=== PATIENT | male | born 1960 | race Caucasian/White ===

== ENCOUNTER → 2019-10-07 13:07 | Outpatient (BNVA) | payer OTHER, SELFPAY | PROVIDERS: PCP Family Medicine; Visit Provider Nurse Practitioner Family | DX: I10 Essential (primary) hypertension (principal); I25.10 Atherosclerotic heart disease of native coronary artery without angina pectoris; R53.83 Other fatigue | CPT/HCPCS: 80053; 80061; 82306; 82607; 83721; 84484; 85025 ==

== ENCOUNTER → 2019-10-08 09:11 | Outpatient (BNVA) | payer OTHER, SELFPAY | PROVIDERS: PCP Family Medicine; Visit Provider Nurse Practitioner Family | DX: I25.10 Atherosclerotic heart disease of native coronary artery without angina pectoris (principal); R53.83 Other fatigue; E78.5 Hyperlipidemia, unspecified; I10 Essential (primary) hypertension; R11.2 Nausea with vomiting, unspecified; R61 Generalized hyperhidrosis; R73.09 Other abnormal glucose | CPT/HCPCS: 83036 ==

== ENCOUNTER 2022-05-08 10:29 | Outpatient (CLI) | payer OTHER, SELFPAY ==
--- NOTE | 2022-05-08 10:41 | XR_ITS ---
WS: [id number] LUMBAR SPINE TECHNIQUE: 5 views of the lumbar spine CLINICAL INFORMATION: LUMBAR PAIN COMPARISON: None. FINDINGS: Five [id number]-[id number] lumbar vertebral bodies. Mild lumbar curve convex RIGHT. Slightly retrolisthesis L3 on L4 and L4 on L5. Disc space narrowing worse at L1-L2 with hypertrophic spurring. Mild facet ar thropathy L5-S1. Aortic calcification. No acute appearing compression fractures. Visualized bowel gas pattern is normal. XR/XR lumbar spine min 4V [id number] IMPRESSION: 1. Mild lumbar curve convex RIGHT. No acute compression fractures. 2. Slight retrolisthesis L3 on L4 and L4 on L5. 3. Disc space narrowing worse at L1-L2 with anterior hypertrophic changes. 4. Mild facet arthropathy L5-S1 with bony foraminal narrowing. 5. Vascular calcification.
--- NOTE | 2022-05-08 10:41 | XR_ITS ---
WS: [id number] HIPS BILATERAL TECHNIQUE: 4 views, AP and lateral CLINICAL INFORMATION: R HIP PAIN COMPARISON: None. FINDINGS: Mild degenerative arthritis both hips with joint space narrowing LEFT greater than RIGHT. Slight hype rtrophic spurring about the acetabulum. Femoral necks and proximal femoral shafts appear normal. Norm al pubic rami. Vascular calcification. Incidental pelvic phleboliths. No acute fractures. XR/XR hip BI 3-4V wo/w pel [id number] IMPRESSION: Mild osteoarthritis both hips with joint space narrowing LEFT greater than RIGH T. Tonnis classification LEFT: grade 1: sclerosis of femoral head and acetabulum o r slight joint space narrowing or slight lippig at joint margins Tonnis classification RIGHT: grade 1: sclerosis of femoral head and acetabulum or slight joint space narrowing or slight lippig at joint margins
== END 2022-05-08 10:30 | disposition home or self-care (01) ==
LOC: RAD 10:32
PROVIDERS: PCP Nurse Practitioner Family; Visit Provider Nurse Practitioner Family
DX: M47.897 Other spondylosis, lumbosacral region (principal); M16.0 Bilateral primary osteoarthritis of hip
CPT/HCPCS: 72110; 73522

== ENCOUNTER 2023-05-25 09:03 | Outpatient (CLI) | payer OTHER, SELFPAY ==
--- NOTE | 2023-05-25 09:38 | ECG_ITS ---
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 Measurements Intervals [place] Rate: 68 P: 0 OH: 0 QRS: 62 QRSD: 91 T: 13 QT: 394 QTc: 421 Interpretive Statements ATRIAL FIBRILLATION ABNORMAL RHYTHM ECG Compared to ECG 08/03/2018 04:46:20 Sinus rhythm no longer present T-wave abnormality no longer present Possible ischemia no longer present Electronically Signed On 05-25-2023 17:22:23 CDT by Jesse Ludwig M.D. [id number]
[2023-05-25 09:49] LABS: Basophils # 0.1 10^3/uL (0.0-0.1); Basophils % 0.6 %; Eosinophils # 0.1 10^3/uL (0.0-0.8); Eosinophils % 1.4 %; Hematocrit 43.3 % (37-53); Lymphocytes % 24.2 %; Mean Corpuscular HGB Conc 34.2 g/dL (30-55); Mean Corpuscular Hemoglobin 31.8 pg (27-33); Mean Corpuscular Volume 92.9 fl (82-101); Mean Platelet Volume 10.4 fL (7.4-10.4); Monocytes # 0.6 10^3/uL (0.2-0.9); Neutrophils # 5.27 10^3/uL (1.8-7.7); Neutrophils % 65.4 %; Nucleated Red Blood Cells % 0 %; Platelet Count 179 10^3/cmm (157-399); Red Blood Count 4.66 10^6/uL (3.85-5.65); Red Cell Distribution Width 12.6 % (12.1-15.1); White Blood Count 8.05 10^3/uL (3.29-11.43)
[2023-05-25 10:16] LABS: Anion Gap 14.7 (5-19); Blood Urea Nitrogen 15 mg/dL (8-23); Calcium 9.4 mg/dL (8.5-10.5); Carbon Dioxide 26 mmol/L (22-29); Chloride 104 mmol/L (98-107); Glomerular Filtration Rate 67.8 mL/min (90-130); Glucose 115 mg/dL (65-115); Osmolality Calculated 292 mOsm/kg (285-295); Potassium 4.7 mmol/L (3.5-5.1); Sodium 140 mmol/L (136-145)
== END 2023-05-25 09:04 | disposition home or self-care (01) ==
PROVIDERS: PCP Nurse Practitioner Family; Visit Provider Specialist
DX: J38.3 Other diseases of vocal cords (principal); I48.91 Unspecified atrial fibrillation; Z79.899 Other long term (current) drug therapy
CPT/HCPCS: 36415; 80048; 85025; 93005

== ENCOUNTER 2023-06-05 11:11 | Day surgery (SDC) | payer OTHER, SELFPAY ==
[2023-06-05] VITALS (10 sets, daily range): BP systolic 137–171; BP diastolic 85–113; PULSE 75–94; RESP 15–21; TEMP 36.1–36.6; O2SAT 91–98
--- NOTE | 2023-06-05 11:41 | W.PM.OPSUD ---
Surgery/Procedure H&P Update DATE OF PROCEDURE: June 05, 2023 DATE H&P PERFORMED: 05/25/23 PRIMARY INDICATION FOR PROCEDURE: True vocal cord lesion PLANNED PROCEDURE: Operation Date: 06/05/23 12:50 Proposed Procedures p Direct,micro direct laryngscopy with biopsy/biopsies 39700,J38.3(Not Applicable) - César Sinclair MD
--- NOTE | 2023-06-05 11:44 | ANES.PREANE2 ---
Pre-Anesthetic Assessment Height/Weight: Height 1.73 m Operation Date: 06/05/23 12:50 Proposed Procedures p Direct,micro direct laryngscopy with biopsy/biopsies 55339,J38.3(Not Applicable) - César Sinclair MD Familial anesthetic complications: None Was Beta Bonnie taken within 24 hours: N/A Was Clonidine taken within 24 hours: N/A Last intake: > 8hrs Social Alcohol (a couple of bourbon and cokes a ngiht) and Tobacco Exam alert, oriented x 3, clear to auscultation bilaterally and regular rate & rhythm Airway Mallampati: Class II Dentition: false CV/HEM Atrial Fibrillation, Coronary Artery Disease and Hypertension Anesthetic Plan ASA status: 3 Anesthesia: General Risk of > 500 ml blood loss (7ml/kg in children): No Medications/Allergies Home Medications Medication Instructions Recorded Confirmed Last Taken Type cyanocobalamin (vitamin B-12) 100 mcg IM Q30D 03/12/20 06/04/23 Unknown History 1,000 mcg/mL injection kit omeprazole 20 mg capsule,delayed 20 mg PO DAILY 03/12/20 06/04/23 06/04/23 History release fenofibrate 160 mg tablet 160 mg PO DAILY #90 tabs 09/22/21 06/04/23 06/04/23 Rx nitroglycerin 0.4 mg sublingual 0.4 mg sublingual Q5M PRN chest 09/22/21 06/04/23 Unknown Rx tablet (Nitrostat) pain #25 tabs aspirin 81 mg tablet,delayed 81 mg PO DAILY #90 tabs 03/27/22 06/04/23 05/28/23 Rx release (Adult Low Dose Aspirin) metoprolol succinate 100 mg 100 mg PO QDAY #90 tabs 06/15/22 06/04/23 06/05/23 Rx tablet,extended release 24 hr amlodipine 5 mg tablet 5 mg PO DAILY #90 tabs 09/25/22 06/04/23 06/04/23 Rx magnesium 250 mg tablet 250 mg PO DAILY 09/25/22 06/04/23 06/04/23 History clobetasol 0.05 % topical ointment 1 applic topical BID 2 weeks #60 10/19/22 06/04/23 Unknown Rx grams losartan 50 mg tablet 150 mg PO DIRECTED #270 tabs 03/06/04/23 06/04/23 Rx rosuvastatin 20 mg tablet 10 mg PO DAILY #135 tabs 01/26/23 06/04/23 06/04/23 Rx clopidogrel 75 mg tablet 75 mg PO DAILY #90 tabs 04/02/23 06/04/23 05/28/23 Rx Allergies Allergy/AdvReac Type Severity Reaction Status Date / Time No Known Allergies Allergy Verified 06/04/23 11:05 [facility] Anesthesia Medical History ASHD (arteriosclerotic heart disease) Hyperlipemia Hypertension Surgical History History of circumcision Family History Other Heart disease Social History Smoking and tobacco status: current every day smoker Alcohol intake: current Alcohol intake frequency: 3 or more drinks per day Substance/Drug Use: never Lives independently: Yes Household members: spouse Marital status: Data Anesthesia Cardiac Studies: No Data to Display
[2023-06-05] MEDS: sodium chloride 0.9% 1,000 ML 30 ML IV (11:55)
[2023-06-05] MEDS: fluorescein 1 mg Strip XX (13:05)
[2023-06-05] MEDS: EPINEPHrine 1 mg/mL INJ XX (13:05)
--- NOTE | 2023-06-05 13:23 | PM.OP ---
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 Procedure done: Microdirect laryngoscopy with biopsy of left anterior true vocal cord lesion Implants: None Specimens removed/disposition: Left anterior true vocal cord lesion Pathology: Left anterior true vocal cord lesion Surgeon: César Sinclair Surgeon: César Sinclair MD Crusher Foreman: Korin Leahy Anesthesia: General Estimated blood loss (mL): 2 IV fluids (mL): 500 Complications: None Findings: - Bulky, 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 The patient desires surgical therapy. Procedure: The patient was then preoperative holding area was taken to the operating room where he was placed on the operating table in supine position. Anesthesia was obtained with general endotracheal anesthesia and the table was turned 90 degrees to the patient's left. The patient then prepped and draped in the usual sterile fashion and a moist Ray-Porsha was placed on the patient's maxillary gingiva. The surgical laryngoscope was then advanced down the right oral cavity gutter under direct vision until the larynx came into view. An inspection was then carried out of the patient's larynx with the findings noted above. The patient was then placed on suspension and the surgical Mendez kaveh surgical telescope was advanced into the patient's airway and the lesion previously described was documented photographically. The lesion of the left anterior true vocal cord was noted then removed using cup forceps and microlaryngeal instruments. At this point hemostasis was achieved with direct application of 1:1000 epinephrine on a neuropledget. Once this was accomplished the patient was taken off suspension and the larynx was reinspected. At this point the instrumentation was removed from the patient and the procedure was terminated. Control of the patient was returned to anesthesia where he underwent an uneventful reversal anesthesia extubation was taken to recovery room in stable condition. There were no operative or anesthetic complications
--- NOTE | 2023-06-05 14:00 | ANE.PACU2 ---
Inpatient post-anesthesia follow up: Airway intact: Yes Vital signs: Temperature 97 F Pulse Rate 81 Respiratory Rate 18 Blood Pressure 142/88 Pulse Oximetry 94 Oxygen Delivery Me thod Room Air Oxygen Flow Rate 2 Fraction of Inspir ed Oxygen Hydration adequate: Yes Nausea and vomiting: No Pain level: 1 Mental status: Baseline
== END 2023-06-05 14:35 | disposition home or self-care (01) ==
PROVIDERS: Family Provider Internal Medicine; PCP Nurse Practitioner Family; Visit Provider Specialist
PROC: 0CJS8ZZ Inspection of Larynx, Via Natural or Artificial Opening Endoscopic (ICD-10-PCS; principal; 2023-06-05 12:50)
DX: J38.3 Other diseases of vocal cords (principal); I48.91 Unspecified atrial fibrillation; I25.10 Atherosclerotic heart disease of native coronary artery without angina pectoris; I10 Essential (primary) hypertension; E78.5 Hyperlipidemia, unspecified; F17.210 Nicotine dependence, cigarettes, uncomplicated
CPT/HCPCS: 31536; 88305; 88342; J0171; J0330; J0360; J1100; J2405; J2704; J3490; J7030

== ENCOUNTER 2023-08-08 10:37 | Outpatient (CLI) | payer OTHER, SELFPAY ==
--- NOTE | 2023-08-08 11:15 | USCV_ITS ---
David Nance Age: 63 Gender: M : 1960 Exam Date: 08/08/2023 11:00 Ordering Phys: Babak George M.D ([email or web address]) Technologist: CT Exam Location: [facility] [place] Indication: sob,afib BP: 130 / 80 HR: 77 Rhythm: Atrial fibrillation Technical Quality: Adequate MEASUREMENTS (Male / Female) Normal Values 2D ECHO LV Chamber Size 4.2 cm RV Chamber Size 4.2 cm LVOT Diameter 2.0 cm LV Ejection Fraction MOD 2C 49.2 % LV Ejection Fraction 2C AL 47.2 % LA Diameter 4.5 cm LA Width 4.1 cm LA Height 6.0 cm RA Width 4.9 cm RA Height 5.6 cm Aorta at Sinotubular Diameter 2.5 cm IVC Diameter 2.0 cm M-MODE Aortic Annulus Diameter 3.4 cm LA Ao Ratio MM 1.4 MV E Point Septal Separation 0.5 cm DOPPLER AV Peak Velocity 141.0 cm/s LVOT Peak Velocity 93.0 cm/s AV Area Cont Eq vti 2.5 cm squared AV Area Cont Eq pk 2.2 cm squared MV E' Velocity 13.0 cm/s TR Peak Velocity 232.2 cm/s TR Peak Gradient 21.6 mmHg TV Peak E Velocity 98.0 cm/s Right Atrial Pressure 3.0 mmHg Pulmonary Artery Systolic Pressu 24.6 mmHg PV Peak Velocity 116.0 cm/s FINDINGS Left Ventricle Normal left ventricular size, systolic function and wall thickness, with no regional wall motion abnormalities. Left ventricular ejection fraction is estimated at 58 %. Right Ventricle Normal right ventricular size and systolic function. Right Atrium Normal right atrial size. Left Atrium Mildly increased left atrial size. Mitral Valve Structurally normal mitral valve. Thickened mitral valve. Mild- moderate mitral valve regurgitation. Aortic Valve Structurally normal trileaflet aortic valve. Trace aortic valve regurgitation. Tricuspid Valve Structurally normal tricuspid valve. Trace tricuspid valve regurgitation. Pulmonic Valve Pulmonic valve not well visualized. Trace pulmonary valve regurgitation. Pericardium No pericardial effusion. Aorta Normal size aortic root and proximal ascending aorta. IVC Normal IVC dimension with >50% respiratory change of the inferior vena cava. CONCLUSIONS 1. Normal LV systolic function. Estimated LVEF 55 to 60% 2. Mildly dilated left atrium. Mild to moderate mitral regurgitation. 3. Normal RV size and systolic function. 4. Normal right heart and pulmonary pressures. Giovani Sargent MD (Electronically Signed) Final Date: 08 August 2023 15:23 S
== END 2023-08-08 10:38 | disposition home or self-care (01) ==
LOC: RAD 10:38
PROVIDERS: Family Provider Internal Medicine; PCP Nurse Practitioner Family; Visit Provider Internal Medicine
DX: R07.9 Chest pain, unspecified (principal); R06.02 Shortness of breath; I48.91 Unspecified atrial fibrillation; I51.7 Cardiomegaly; I34.0 Nonrheumatic mitral (valve) insufficiency
CPT/HCPCS: 93306

== ENCOUNTER 2024-02-19 19:30 | Inpatient (IN) | payer OTHER, SELFPAY ==
[2024-02-19 19:41] VITALS: BP 120/79; PULSE 72; RESP 14; TEMP 36.7; O2SAT 96
[2024-02-19 19:57] LABS: Basophils % 0.2 %; Eosinophils % 0.1 %; Hematocrit 42.8 % (37-53); Lymphocytes # 1.1 10^3/uL (0.8-4.8); Lymphocytes % 5.8 %; Mean Corpuscular HGB Conc 33.6 g/dL (30-55); Mean Corpuscular Hemoglobin 31.4 pg (27-33); Mean Corpuscular Volume 93.2 fl (82-101); Mean Platelet Volume 10.4 fL (7.4-10.4); Monocytes # 1.3 10^3/uL (0.2-0.9); Monocytes % 7.2 %; Neutrophils # 15.68 10^3/uL (1.8-7.7); Neutrophils % 86.3 %; Nucleated Red Blood Cells % 0 %; Platelet Count 227 10^3/cmm (157-399); Red Blood Count 4.59 10^6/uL (3.85-5.65); Red Cell Distribution Width 12.3 % (12.1-15.1); White Blood Count 18.16 10^3/uL (3.29-11.43)
--- NOTE | 2024-02-19 19:58 | ECG_ITS ---
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 Measurements Intervals [place] Rate: 68 P: 35 MN: 155 QRS: 37 QRSD: 90 T: 30 QT: 388 QTc: 415 Interpretive Statements SINUS RHYTHM Compared to ECG 05/25/2023 09:46:38 Atrial fibrillation no longer present Electronically Signed On 02-20-2024 18:19:44 CDT by Babak George M.D. [id number]
--- NOTE | 2024-02-19 20:08 | CTR_ITS ---
PROCEDURE INFORMATION: Exam: CT Abdomen And Pelvis With Contrast Exam date and time: 02/19/2024 9:03 PM Age: 63 years old Clinical indication: Abdominal pain; Additional info: Rlq abdominal pain TECHNIQUE: Imaging protocol: Computed tomography of the abdomen and pelvis with contrast. Radiation optimization: All CT scans at this facility use at least one of these dose optimization techniques: automated exposure control; mA and/or kV adjustment per patient size (includes targeted exams where dose is matched to clinical indication); or iterative reconstruction. Contrast material: OMNI 350; Contrast volume: 100 ml; Contrast route: INTRAVENOUS (IV); COMPARISON: CR XR hip BI 3-4V wo/w pel [id number] 05/08/2022 10:47 AM RADIATION DOSE METRICS: Total DLP (mGy-cm): 455.2 FINDINGS: Lungs: Mild left basilar atelectasis and/or scarring. Heart: Mild cardiomegaly. No pericardial effusion or pericardial thickening. Liver: The liver is normal. No hepatic masses are identified. Gallbladder and bile ducts: The gallbladder is normal. There is no ductal dilatation. Pancreas: The pancreas is normal. Spleen: Calcified splenic granulomata are noted. The spleen is otherwise normal. Adrenal glands: The adrenal glands are normal. Kidneys and ureters: There is normal enhancement of the kidneys. No renal calcifications are identified. There is no hydronephrosis. There are bilateral subcentimeter renal low-density lesions which are too small for accurate characterization, likely representing simple cysts. Stomach and bowel: There is no large or small bowel obstruction. There is no evidence of bowel wall thickening. Appendix: Multiple appendicolith. Distended gallbladder which is partially fluid-filled measuring up to 14 mm. Marked adjacent inflammatory change. Jpkmg-dl-nlwmgzaw fluid tracking in the right paracolic gutter. Intraperitoneal space: No other areas of inflammatory change. No pneumoperitoneum. No other free fluid or fluid collections Vasculature: Atherosclerotic calcifications of the aorta are present. No aneurysm is identified. Lymph nodes: There are no enlarged retroperitoneal or mesenteric lymph nodes. Urinary bladder: The bladder is decompressed and collapsed. No abnormality identified. Reproductive: The prostate is grossly unremarkable. Bones/joints: No acute osseous abnormalities are seen. Soft tissues: There is a small left inguinal hernia containing only fat. The soft tissues are otherwise within normal limits. CT/CT abdomen pelvis w con* [id number] IMPRESSION: 1. Acute appendicitis. Moderate fluid in the distal right paracolic gutter may represent reactive fluid or perforation. 2. Other nonemergent findings above. COMMENTS: Consistent with the [employer]'s Incidental Findings Committee white paper (J Am Radha Radiol 2018): Any incidental renal lesion less than 1 cm or classified as too small to characterize, or any incidental cystic renal lesion characterized as simple-appearing, is likely benign. No follow-up imaging is recommended for these lesions per consensus recommendations based on imaging criteria.
--- NOTE | 2024-02-19 20:15 | ED_ITS ---
HPI - Abdominal Pain 2 General: Chief Complaint: Abdominal Pain Stated Complaint: Rt Lower Quad Pain Time Seen by Provider: 02/19/24 19:52 History of Present Illness: 63-year-old man with a history of hypert ension hyperlipidemia and coronary artery disease who presents to the emergency room with right lower quadrant abdominal pain all day today. He had nausea and vomiting. Pain is worse with movement and walking standing and palpation. No known fever. No chest pain. No altered mental status. No dysuria. No hematuria. No history of kidney stones. He has had no abdominal surgeries in the past. Review of Systems 2 Narrative: Constitutional symptoms: Negative except as documented in HPI. Skin symptoms: Negative except as documented in HPI. Eye symptoms: Negative except as documented in HPI. ENMT symptoms: Negative except as documented in HPI. Respiratory symptoms: Negative except as documented in HPI. Cardiovascular symptoms: Negative except as documented in HPI. Gastrointestinal symptoms: Negative except as documented in HPI. Genitourinary symptoms: Negative except as documented in HPI. Musculoskeletal symptoms: Negative except as documented in HPI. Neurologic symptoms: Negative except as documented in HPI. Psychiatric symptoms: Negative except as documented in HPI. Endocrine symptoms: Negative except as documented in HPI. PFSH ED 2 PFSH: Medical History ASHD (arteriosclerotic heart disease) Hyperlipemia Hypertension Surgical History History of circumcision Family History Other Heart disease Social History Smoking and tobacco/nicotine status: current every day tobacco/nicotine user Alcohol intake: current Alcohol intake frequency: 3 or more drinks per day Substance/Drug Use: never Lives independently: Yes Household members: spouse Marital status: Physical Exam 2 Narrative: EXAM NARRATIVE: General: Alert, no acute distress. Skin: Warm, dry. Head: Normocephalic, atraumatic. Neck: Supple, trachea midline. Eye: Extraocular movements are intact. Ears, nose, mouth and throat: Tacky oral mucosa Cardiovascular: Regular, Normal peripheral perfusion. Respiratory: Lungs are clear to auscultation, respirations are non-labored, breath sounds are equal, Symmetrical chest wall expansion. Gastrointestinal: Soft, moderate to severe right lower quadrant pain to palpation. Also referred pain when I palpate the left to the right. Pain with tapping is foot., Non distended, Normal bowel sounds. Musculoskeletal: Normal ROM, no deformity. Neurological: Alert and oriented, No focal neurological deficit observed. Psychiatric: Cooperative, appropriate mood & affect. Course 2 Vital Signs: Vital signs: Vital Signs Temperature 98.1 F 02/19/24 19:41 Pulse Rate 68 02/19/24 20:27 Respiratory Rate 18 02/19/24 20:45 Blood Pressure 138/75 02/19/24 20:27 Pulse Oximetry 98 02/19/24 20:45 Oxygen Delivery Me thod Room Air 02/19/24 20:27 MDM - Abdominal Pain Medical Decision Making Medical decision making: Differential diagnosis for this patient with right lower quadrant abdominal pain including but not limited to and based on the above HPI, review of systems and physical exam: Ureterolithiasis. Urinary tract infection. Appendicitis. colitis. small bowel obstruction. Crohn's flare. Pancreatitis. Cholelithiasis or cholecystitis. Hepatitis. Diverticulitis. Constipation. ovarian cyst. ovarian torsion Workup: Orders were placed to evaluate differential diagnosis based on the above differential, HPI and exam: EKG: Time 1957 rate 68. Normal sinus rhythm, No ST-T changes, no ectopy, normal UT & QRS intervals, This was reviewed and interpreted by myself the ER physician at 2001 Lab Review: Laboratory results were reviewed and interpreted by myself the emergency room physician. Lab work remarkable for leukocytosis with a white count 22,000 and a CRP of over 50,000. Urinalysis was unremarkable. CT of the abdomen pelvis with contrast: This is positive for acute appendicitis. There is quite a bit of inflammation and could possibly be early perforation but there is no free air. This was reviewed and interpreted by myself the emergency room physician. I also reviewed the radiology report. Consultation: I spoke with the radiologist on-call with [facility]. Discussed the findings of acute appendicitis. Consultation: I spoke with Dr. Martell who is on-call for general surgery. He accepts the patient to his service on the floor. Recommends NPO. 150 mL of normal saline an hour. Scheduled Zosyn. Pain and nausea meds as needed. I reviewed the patient's medical record Reexamination: On reexamination the patient seems to be feeling a little better after having pain medications. Still some right lower quadrant pain. No increased work of breathing. No altered mental status. Assessment and plan: Acute appendicitis Dehydration Chronic anticoagulation with Eliquis and Plavix. ? IV Zosyn, IV fluids, IV morphine, IV Zofran in the emergency room -Last Plavix and Eliquis were early this morning. So Eliquis should be out of his system by the time of surgery tomorrow. -I discussed the patient with the general surgeon on-call who is admitting the patient. - Discussed findings and plan with patient. Answered any questions. - All laboratory values were reviewed and interpreted personally by myself, the ER physician - All imaging was reviewed and interpreted personally by myself, the ER physician. - Evaluation and treatment of this problem were appropriate in the emergency setting Lab Data 02/19/24 19:50 02/19/24 19:50 Labs/Radiology: Radiology Impressions Abdomen/Pelvis CT 02/19/24 20:08 IMPRESSION: 1. Acute appendicitis. Moderate fluid in the distal right paracolic gutter may represent reactive fluid or perforation. 2. Other nonemergent findings above. COMMENTS: Consistent with the [employer]'s Incidental Findings Committee white paper (J Am Radha Radiol 2018): Any incidental renal lesion less than 1 cm or classified as too small to characterize, or any incidental cystic renal lesion characterized as simple-appearing, is likely benign. No follow-up imaging is recommended for these lesions per consensus recommendations based on imaging criteria. ADDENDUM: 02/19/249 ADDENDUM: THIS REPORT CONTAINS FINDINGS THAT MAY BE CRITICAL TO PATIENT CARE. The findings were verbally communicated via telephone conference with BIMAL UHERTAS at 9:24 PM CDT on 02/19/2024. The findings were acknowledged and understood. Laboratory Results WBC 18.16 10^3/uL (3.29-11.43) H 02/19/24 19:50 RBC 4.59 10^6/uL (3.85-5.65) 02/19/24 19:50 Hgb 14.40 g/dL (11.27-16.99) 02/19/24 19:50 Hct 42.8 % (37-53) 02/19/24 19:50 MCV 93.2 fl (82-101) 02/19/24 19:50 MCH 31.4 pg (27-33) 02/19/24 19:50 MCHC 33.6 g/dL (30-55) 02/19/24 19:50 RDW 12.3 % (12.1-15.1) 02/19/24 19:50 Plt Count 227 10^3/cmm (157-399) 02/19/24 19:50 MPV 10.4 fL (7.4-10.4) 02/19/24 19:50 Neut % (Auto) 86.3 % 02/19/24 19:50 Lymph % (Auto) 5.8 % 02/19/24 19:50 [place] % (Auto) 7.2 % 02/19/24 19:50 Eos % (Auto) 0.1 % 02/19/24 19:50 Baso % (Auto) 0.2 % 02/19/24 19:50 Neut # (Auto) 15.68 10^3/uL (1.8-7.7) H 02/19/24 19:50 Lymph # (Auto) 1.1 10^3/uL (0.8-4.8) 02/19/24 19:50 [place] # (Auto) 1.3 10^3/uL (0.2-0.9) H 02/19/24 19:50 Eos # (Auto) 0.0 10^3/uL (0.0-0.8) 02/19/24 19:50 Baso # (Auto) 0.0 10^3/uL (0.0-0.1) 02/19/24 19:50 Nucleated RBC % (auto) 0 % 02/19/24 19:50 Nucleated RBCs # 0.0 /100WBC 02/19/24 19:50 Sodium 140 mmol/L (136-145) 02/19/24 19:50 Potassium 4.8 mmol/L (3.5-5.1) 02/19/24 19:50 Chloride 104 mmol/L (98-107) 02/19/24 19:50 Carbon Dioxide 26 mmol/L (22-29) 02/19/24 19:50 Anion Gap 14.8 (5-19) 02/19/24 19:50 BUN 13 mg/dL (8-23) 02/19/24 19:50 Creatinine 1.2 mg/dL (0.7-1.2) 02/19/24 19:50 GFR Calculation 61.1 mL/min (90-130) L 02/19/24 19:50 Glucose 137 mg/dL (65-115) H 02/19/24 19:50 Calculated Osmolality 292 mOsm/kg (285-295) 02/19/24 19:50 Calcium 9.1 mg/dL (8.5-10.5) 02/19/24 19:50 Total Bilirubin 0.6 mg/dL (0.15-1.2) 02/19/24 19:50 AST 23 U/L (0-40) 02/19/24 19:50 ALT 38 U/L (0-41) 02/19/24 19:50 Alkaline Phosphatase 82 U/L (40-130) 02/19/24 19:50 C-Reactive Protein 59.6 mg/L (0.0-4.9) H 02/19/24 19:50 Total Protein 7.4 g/dL (6.6-8.7) 02/19/24 19:50 Albumin 4.6 g/dL (3.5-5.2) 02/19/24 19:50 Globulin 2.8 g/dL (1.3-4.6) 02/19/24 19:50 Lipase 24 U/L (13-60) 02/19/24 19:50 Urine Color Yellow (Yellow) 02/19/24 19:53 Urine Appearance Clear (CLEAR) 02/19/24 19:53 Urine pH 8 (5-7) H 02/19/24 19:53 Ur Specific Pearson 1.010 (1.005-1.030) 02/19/24 19:53 Urine Protein Neg (Negative) 02/19/24 19:53 Urine Glucose (UA) Norm (Normal) 02/19/24 19:53 Urine Ketones 1+ (Negative) H 02/19/24 19:53 Urine Blood Neg (Negative) 02/19/24 19:53 Urine Nitrate Negative (Negative) 02/19/24 19:53 Urine Bilirubin Neg (Negative) 02/19/24 19:53 Prot Sulfosalicylic Acd Negative (Negative) 02/19/24 19:53 Urine Urobilinogen Norm mg/dL (Negative) 02/19/24 19:53 Ur Leukocyte Esterase Negative (Negative) 02/19/24 19:53 Urine RBC 0-4 /hpf (0-2) H 02/19/24 19:53 Urine WBC None /hpf (0-5) 02/19/24 19:53 Ur Squamous Epith Cells None /hpf (0-5) 02/19/24 19:53 Amorphous Sediment Not Reportable 02/19/24 19:53 Urine Bacteria None /hpf (NONE) 02/19/24 19:53 Urine Mucus 2+ /hpf 02/19/24 19:53 All radiology interpretation(s) finalized by discharge Discharge Plan Discharge Patient Disposition: Admitted As Inpatient Clinical Impression: Dehydration, Chronic anticoagulation Acute appendicitis Qualifiers: Acute appendicitis type: with localized peritonitis Appendicitis gangrene presence: without gangrene Appendicitis perforation presence: unspecified whether perforation present Appendicitis abscess presence: without abscess Q ualified Code(s): K35.30 - Acute appendicitis with localized peritonitis, without perforation or gangrene Condition: Stable Coding Level of Care Code ED Util[employer] for Shailesh Cam
[2024-02-19 20:27] VITALS: BP 138/75; PULSE 68; O2SAT 93
[2024-02-19 20:27] LABS: Alanine Aminotransferase 38 U/L (0-41); Albumin Level 4.6 g/dL (3.5-5.2); Alkaline Phosphatase 82 U/L (40-130); Anion Gap 14.8 (5-19); Aspartate Amino Transferase 23 U/L (0-40); Blood Urea Nitrogen 13 mg/dL (8-23); C Reactive Protein 59.6 mg/L (0.0-4.9); Calcium 9.1 mg/dL (8.5-10.5); Carbon Dioxide 26 mmol/L (22-29); Chloride 104 mmol/L (98-107); Creatinine Clr Calc Pharmacy 62.4466; Globulin 2.8 g/dL (1.3-4.6); Glomerular Filtration Rate 61.1 mL/min (90-130); Glucose 137 mg/dL (65-115); Lipase 24 U/L (13-60); Osmolality Calculated 292 mOsm/kg (285-295); Potassium 4.8 mmol/L (3.5-5.1); Sodium 140 mmol/L (136-145); Total Bilirubin 0.6 mg/dL (0.15-1.2); Total Protein 7.4 g/dL (6.6-8.7)
[2024-02-19 20:39] LABS: Bilirubin Urine Neg (Negative); Blood Urine Neg (Negative); Glucose Urine UA Norm (Normal); Ketones Urine 1+ (Negative); Leukocyte Esterase Urine Negative (Negative); Nitrate Urine Negative (Negative); Protein Urine Neg (Negative); Urine Appearance Clear (CLEAR); Urine Color Yellow (Yellow); Urobilinogen Urine Norm (Negative); pH Urine 8 (5-7)
[2024-02-19 20:40] LABS: Sulfosalicylic Acid Urine Negative (Negative)
[2024-02-19 20:45] VITALS: RESP 18; O2SAT 98
[2024-02-19] MEDS: sodium chloride 0.9% 1,000 ML 999 ML IV (20:45)
[2024-02-19] MEDS: morphine 4 mg/mL SDV 1 mL IVP (20:45)
[2024-02-19] MEDS: ondansetron 2 mg/ML SDV 2 mL 4 MG IVP (20:45)
[2024-02-19 20:59] LABS: Add Urine Culture? No; Mucus Urine 2+ /hpf; RBC Urine 0-4 /hpf (0-2)
[2024-02-19] MEDS: iohexol 350 mg/mL 500 mL Btl (per mL) IV (21:15)
[2024-02-19 21:41] VITALS: BP 145/80; PULSE 73; O2SAT 91
[2024-02-19] MEDS: piperacillin-tazobactam 4.5 GM in sodium chloride 0.9% (plus) 50 ML IV (21:49)
--- NOTE | 2024-02-19 22:07 | PC.NURSE ---
Report was called to Honey MARR in Med-Surg. All questions and concerns were addressed at time of report.
[2024-02-19 22:58] VITALS: BMI 24.3
[2024-02-19] MEDS: sodium chloride 0.9% 1,000 ML 150 ML IV (23:17)
[2024-02-20] VITALS (19 sets, daily range): BP systolic 99–153; BP diastolic 53–78; PULSE 60–90; RESP 15–22; TEMP 36.6–38.1; O2SAT 90–97
[2024-02-20] MEDS: morphine 4 mg/mL SDV 1 mL IVP ×3 (00:53→10:46)
[2024-02-20] MEDS: sodium chloride 0.9% 1,000 ML 150 ML IV ×2 (06:17→22:26)
[2024-02-20] MEDS: piperacillin-tazobactam 3.375 GM in sodium chloride 0.9% (plus) 50 ML IV ×2 (06:24→17:24)
[2024-02-20] MEDS: sodium chloride 0.9% 1,000 ML 30 ML IV (12:08)
--- NOTE | 2024-02-20 12:12 | PC.NURSE ---
surgery surg nurse came and picked up pt up around 1153
--- NOTE | 2024-02-20 12:17 | P.ANESASSM_ITS ---
Pre-Anesthetic Assessment Height/Weight: Height 1.73 m Weight 70.715 kg Temp Pulse Resp BP Pulse Ox O2 Del Method 98.1 F 82 16 137/75 94 Room Air 02/20/24 12:10 02/20/24 12:10 02/20/24 12:10 02/20/24 12:10 02/20/24 12:10 02/20/24 12:10 Operation Date: 02/20/24 13:00 Proposed Procedures p Laparoscopic Appendectomy(Not Applicable) - Hunter Martell DO Familial anesthetic complications: NOne Was Beta Bonnie taken within 24 hours: N/A Was Clonidine taken within 24 hours: N/A Last intake: Intake Last Liquid Date 02/19/24 Last Liquid Time 23:59 Last Solid Date 02/18/24 Last Solid Time 18:00 Social Alcohol (1 bourbon & coke a night), Tobacco and No alcohol Exam alert, oriented x 3 and clear to auscultation bilaterally afib Airway Mallampati: Class II Dentition: false CV/HEM Atrial Fibrillation, Coronary Artery Disease (3 stents) and Hypertension mod mvr GI Gastroesophageal Reflux Disease Anesthetic Plan ASA status: 3 Anesthesia: General Risk of > 500 ml blood loss (7ml/kg in children): No Medications/Allergies Home Medications Medication Instructions Recorded Confirmed Last Taken Type nitroglycerin 0.4 mg sublingual 0.4 mg sublingual Q5M PRN chest 09/22/21 02/20/24 Unknown Rx tablet (Nitrostat) pain #25 tabs magnesium 250 mg tablet 250 mg PO DAILY 09/25/22 02/20/24 02/19/24 History clopidogrel 75 mg tablet 75 mg PO DAILY #90 tabs 04/02/23 02/20/24 02/19/24 Rx apixaban 5 mg tablet (Eliquis) 5 mg PO BID #180 tabs 07/25/23 02/20/24 02/20/24 Rx metoprolol succinate 50 mg 50 mg PO QDAY #90 tabs 07/25/23 02/20/24 02/19/24 Rx tablet,extended release 24 hr amlodipine 5 mg tablet 5 mg PO DAILY #90 tabs 10/24/23 02/20/24 02/19/24 Rx amiodarone 200 mg tablet 200 mg PO DAILY 02/20/24 02/20/24 02/19/24 History fenofibrate 160 mg tablet 160 mg PO DAILY 02/20/24 02/20/24 02/19/24 History losartan 50 mg tablet See Rx Instructions .Route .COMPLEX 02/20/24 02/20/24 02/19/24 History omeprazole 40 mg capsule,delayed 40 mg PO DAILY 02/20/24 02/20/24 02/19/24 History release ondansetron 4 mg disintegrating 4 mg PO Q6H PRN Nausea 02/20/24 02/20/24 Unknown History tablet rosuvastatin 20 mg tablet 10 mg PO DAILY 02/20/24 02/20/24 02/19/24 History Allergies Allergy/AdvReac Type Severity Reaction Status Date / Time No Known Allergies Allergy Verified 02/19/24 19:45 Current Medications Generic Name Dose Route Start Last Admin Trade Name Freq PRN Reason Stop Dose Admin Sodium Chloride 1,000 mls @ 150 mls/hr 02/19/24 22:52 02/20/24 06:17 Sodium Chloride 0.9% IV 150 mls/hr .Q6H40M JANELLE Administration Piperacillin Sod/Tazobactam 50 mls @ 12.5 mls/hr 02/20/24 06:00 02/20/24 10:44 Sod 3.375 gm/ Sodium Chloride IV Infused Q8H JANELLE Infusion Sodium Chloride 1,000 mls @ 30 mls/hr 02/20/24 12:15 02/20/24 12:08 Sodium Chloride 0.9% IV 02/21/24 12:14 30 mls/hr .Q24H JANELLE Administration Morphine Sulfate 4 mg 02/19/24 22:52 02/20/24 10:46 Morphine 4 Mg/Ml Sdv 1 Ml IVP 4 mg Q4H PRN Administration PAIN PFSH Anesthesia Medical History ASHD (arteriosclerotic heart disease) Hyperlipemia Hypertension Surgical History History of circumcision Family History Other Heart disease Social History Smoking and tobacco/nicotine status: current every day tobacco/nicotine user Alcohol intake: current Alcohol intake frequency: 3 or more drinks per day Substance/Drug Use: never Lives independently: Yes Household members: spouse Marital status: Data Anesthesia 02/19/24 19:50 02/19/24 19:50 Short CBC 02/19/24 Range/Units 19:50 WBC 18.16 H (3.29-11.43) 10^3/uL Hgb 14.40 (11.27-16.99) g/dL Hct 42.8 (37-53) % MCV 93.2 (82-101) fl Plt Count 227 (157-399) 10^3/cmm Neut % (Auto) 86.3 % Neut # (Auto) 15.68 H (1.8-7.7) 10^3/uL BMP 02/19/24 19:50 Sodium 140 Potassium 4.8 Chloride 104 Carbon Dioxide 26 BUN 13 Creatinine 1.2 Glucose 137 H Calcium 9.1 Liver Function 02/19/24 Range/Units 19:50 Total Bilirubin 0.6 (0.15-1.2) mg/dL AST 23 (0-40) U/L ALT 38 (0-41) U/L Alkaline Phosphatase 82 (40-130) U/L Albumin 4.6 (3.5-5.2) g/dL Urine 02/19/24 Range/Units 19:53 Urine Color Yellow (Yellow) Urine Appearance Clear (CLEAR) Urine pH 8 H (5-7) Ur Specific [place] 1.010 (1.005-1.030) Urine Protein Neg (Negative) Urine Glucose (UA) Norm (Normal) Urine Ketones 1+ H (Negative) Urine Nitrate Negative (Negative) Urine Bilirubin Neg (Negative) Ur Leukocyte Esterase Negative (Negative) Urine RBC 0-4 H (0-2) /hpf Urine WBC None (0-5) /hpf Coags 02/19/24 19:50 C-Reactive Protein 59.6 H Cardiac Studies: 2 Echocardiogram 08/08/23 Cardiac Event Monitor 07/25/23
--- NOTE | 2024-02-20 13:35 | P.HP_ITS ---
Providers/Chief Complaint 2 Admitting Physician: Hunter Martell DO Primary Care Provider: Sanjana Ghosh APN Chief Complaint: Rt Lower Quad Pain History of Present Illness David Nance is a 63 year old male who presented to hospital with 1 day history of right lower quadrant abdominal pain nausea vomiting and chills. He denies any diarrhea, constipation, hematochezia and/or melena. The pain is sharp and constant and does not radiate. Palpation makes it worse. Nothing makes pain better. CT the abdomen pelvis shows acute appendicitis. Review of Systems 2 General: Reports: 10 or more systems reviewed and unremarkable except in HPI and below Medications/Allergies Home Medications Medication Instructions Recorded Confirmed Last Taken Type nitroglycerin 0.4 mg sublingual 0.4 mg sublingual Q5M PRN chest 09/22/21 02/20/24 Unknown Rx tablet (Nitrostat) pain #25 tabs magnesium 250 mg tablet 250 mg PO DAILY 09/25/22 02/20/24 02/19/24 History clopidogrel 75 mg tablet 75 mg PO DAILY #90 tabs 04/02/23 02/20/24 02/19/24 Rx apixaban 5 mg tablet (Eliquis) 5 mg PO BID #180 tabs 07/25/23 02/20/24 02/20/24 Rx metoprolol succinate 50 mg 50 mg PO QDAY #90 tabs 07/25/23 02/20/24 02/19/24 Rx tablet,extended release 24 hr amlodipine 5 mg tablet 5 mg PO DAILY #90 tabs 10/24/23 02/20/24 02/19/24 Rx amiodarone 200 mg tablet 200 mg PO DAILY 02/20/24 02/20/24 02/19/24 History fenofibrate 160 mg tablet 160 mg PO DAILY 02/20/24 02/20/24 02/19/24 History losartan 50 mg tablet See Rx Instructions .Route .COMPLEX 02/20/24 02/20/24 02/19/24 History omeprazole 40 mg capsule,delayed 40 mg PO DAILY 02/20/24 02/20/24 02/19/24 History release ondansetron 4 mg disintegrating 4 mg PO Q6H PRN Nausea 02/20/24 02/20/24 Unknown History tablet rosuvastatin 20 mg tablet 10 mg PO DAILY 02/20/24 02/20/24 02/19/24 History Allergies Allergy/AdvReac Type Severity Reaction Status Date / Time No Known Allergies Allergy Verified 02/19/24 19:45 PFSH Acute 2 PFSH: Medical History ASHD (arteriosclerotic heart disease) Hyperlipemia Hypertension Surgical History History of circumcision Family History Other Heart disease Social History Smoking and tobacco/nicotine status: current every day tobacco/nicotine user Alcohol intake: current Alcohol intake frequency: 3 or more drinks per day Substance/Drug Use: never Lives independently: Yes Household members: spouse Marital status: Vitals/I&O/Wt Last Vital Signs Temp 98.1 F 02/20/24 12:10 Pulse 82 02/20/24 12:10 Resp 16 02/20/24 12:10 BP 137/75 02/20/24 12:10 Pulse Ox 94 02/20/24 12:10 O2 Del Method Room Air 02/20/24 12:10 02/19/24 02/20/24 02/20/24 22:59 06:59 14:59 Intake Total 2290 / 2290 50 / 50 Output Total 200 / 200 Balance 2090 / 2090 50 / 50 Weight last 48 hrs Weight 155 lb 14.4 oz Weight 160 lb Weight 160 lb Physical Exam 2 Narrative: General : Patient is well developed , no acute distress, oriented x3 Head : Normal cephalic, a-traumatic. Ears : Pinnae and external canal are normal. Hearing is normal. Eyes : PERRLA, Sclera and injection are normal. No conjunctival discharge. Nose : Mucous membranes are without erythema. Throat : buccal mucosa is normal, gums are without significant recession or hypertrophy. Lungs : Equal chest rise bilaterally, no use of accessory muscles, trachea is midline. Cor : Rate and rhythm are normal. Abdomen : Soft, ND, tender to palpation right lower quadrant, negative Rovsing's, no g/r/m Extremities : No edema, no cyanosis or clubbing, dorsalis pedis pulses are present bilaterally, non-tender to palpation of calves. Upper extremities are normal bilaterally. Back : non-tender to palpation, no CVA tenderness. Neuro : CN II - XII intact, Upper and lower extremities have equal and full strength Data 02/19/24 19:50 02/19/24 19:50 A&P Assessment and plan (1) Acute appendicitis: Qualifiers: Acute appendicitis type: with localized peritonitis Appendicitis abscess presence: without abscess Appendicitis gangrene presence: without gangrene Appendicitis perforation presence: unspecified whether perforation present Qualified Code(s): K35.30 - Acute appendicitis with localized peritonitis, without perforation or gangrene (2) Sepsis: Plan IV fluids 150 cc/h Zosyn Laparoscopic Appendectomy The risks and benefits of the procedure, including but not limited to, bleeding, infection, scar, numbness, pain, damage to surrounding structures, conversion to an open procedure, were explained to the patient. He is understanding of the risks and wishes to proceed. Attestations 2 Medical Necessity Statement*: Patient is can require at least 2 nights in the hospital for IV antibiotics and treatment for sepsis and laparoscopic appendectomy. Coding Level of Care Code Acute Code for [facility] Diagnoses Acute appendicitis K35.30 Acute appendicitis type: with localized peritonitis Appendicitis abscess presence: without abscess Appendicitis gangrene presence: without gangrene Appendicitis perforation presence: unspecified whether perforation present Sepsis A41.9
[2024-02-20] MEDS: lidocaine-epi 2% PF 1:200,000 20 mL SDV INJECTION (14:21)
--- NOTE | 2024-02-20 14:55 | P.OP_ITS ---
Operative Report Date of procedure: February 20, 2024 Pre-op diagnosis: Acute appendicitis Post-op diagnosis: Acute perforated and necrotizing appendicitis with feculent peritonitis Procedure done: Laparoscopic appendectomy Implants: 19 [place] Guy drain Specimens removed/disposition: Appendix and stool Surgeon: Hunter Martell DO Anesthesia: General Estimated blood loss (mL): 5 Complications: None apparent Brief History: this is a very pleasant 63-year-old gentleman who presented to the hospital with a 1 day history of abdominal pain. CT of the abdomen pelvis showed acute appendicitis. Laparoscopic appendectomy was indicated. The risk and benefits were explained and documented. Procedure: Patient was wheeled into the operative room and placed on the OR table in a supine position. Abdomen was inspected prepped and draped in usual sterile fashion. Time-out was performed and all present were in agreement. A 15 blade scalp was used to make a stab incision in the left upper quadrant and intra- abdominal insufflation was achieved using a Veress needle. After localizing the tissue incisions were made and a 12 millimeter trocar was placed into the umbilicus as well as a 5mm in the right lower quadrant and a 5 mm in the left lo wer quadrant . Immediately it was noticeable that there was extensive purulence throughout the right lower quadrant. There were dense adhesions all surrounding this area as well. Purulence was suctioned and loculations were broken bluntly. A necrotic appearing appendix was identified and as this was from the ascending colon, bluntly, further purulence was identified. A perforation at the base of the appendix was identified and there was stool outside of the colon. Laparoscopic LigaSure was used to take down the mesoappendix and to PDS Endoloops were used to snare proximal to this perforation. The appendix was ligated just distal to this using laparoscopic ligature. The appendix, along with surrounding stool were placed into the Endo Catch bag and removed via the umbilicus. Spot irrigation and suctioning was performed. Further minor bleeding from the mesoappendix was controlled with endoclips. The rest of the abdomen was explored, further adhesions were dissected bluntly. No other gross pathology was identified. A 19 [place] Guy drain was brought through the left lower chaparro Hemostasis was noted. I then closed the umbilical site with a Ryne-Lydia and 0 Vicryl suture in a figure of 8 fashion. All ports removed. Skin was washed and dried. Incisions were closed with nylon in a simple interrupted fashion. Sterile bandages were applied. Patient tolerated the procedure well.
--- NOTE | 2024-02-20 15:40 | ANE.PACU2 ---
Inpatient post-anesthesia follow up: Airway intact: Yes Vital signs: Temperature 97.9 F Pulse Rate 72 Respiratory Rate 17 Blood Pressure 104/59 Pulse Oximetry 92 Oxygen Delivery Me thod Nasal Cannula Oxygen Flow Rate 3 Fraction of Inspir ed Oxygen Hydration adequate: Yes Nausea and vomiting: No Pain level: 1 Mental status: Baseline
[2024-02-20] MEDS: heparin 5,000 unit/mL INJ 1 mL 5000 UNIT SUBCUT (17:24)
[2024-02-20] MEDS: losartan 50 mg Tablet PO (17:24)
[2024-02-20] MEDS: HYDROcodone-acetaminophen 7.5-325 mg Tablet 1 TAB PO (20:17)
[2024-02-21] VITALS (9 sets, daily range): BP systolic 116–122; BP diastolic 63–77; PULSE 69–93; RESP 14–18; TEMP 36.4–37.3; O2SAT 90–95
[2024-02-21] MEDS: piperacillin-tazobactam 3.375 GM in sodium chloride 0.9% (plus) 50 ML IV ×3 (00:52→17:21)
[2024-02-21] MEDS: heparin 5,000 unit/mL INJ 1 mL 5000 UNIT SUBCUT ×3 (00:52→15:07)
[2024-02-21] MEDS: HYDROcodone-acetaminophen 7.5-325 mg Tablet 1 TAB PO ×4 (00:54→20:02)
[2024-02-21] MEDS: losartan 50 mg Tablet 100 MG PO (05:07)
--- NOTE | 2024-02-21 05:56 | P.PN_ITS ---
Subjective 2 Subjective: Patient seen and examined. Pain controlled Vitals/I&O/Wt Last Vital Signs Temp 97.5 F L 02/21/24 04:00 Pulse 70 02/21/24 04:00 Resp 18 02/21/24 04:00 BP 122/77 02/21/24 05:07 Pulse Ox 90 02/21/24 04:00 O2 Del Method Room Air 02/20/24 16:00 O2 Flow Rate 3 02/20/24 15:38 02/20/24 02/20/24 02/21/24 14:59 22:59 06:59 Intake Total 1050 / 1050 1340 / 2390 50 / 2440 Output Total 440 / 440 340 / 780 Balance 1050 / 1050 900 / 1950 -290 / 1660 Weight last 48 hrs Weight 161 lb 6.4 oz Weight 155 lb 14.4 oz Weight 160 lb Weight 160 lb Physical Exam 2 Narrative: General: No acute distress, awake alert and oriented x 3 Abdomen: Soft, mildly distended, appropriately tender Incisions intact without erythema or exudate Drain serosanguineous Data 02/19/24 19:50 02/19/24 19:50 A&P Assessment and plan (1) Acute perforated appendicitis: (2) Chronic anticoagulation: Plan Per day #1 status post laparoscopic appendectomy for acute necrotizing and perforated appendicitis with feculent peritonitis Continue Zosyn and drain management Incentive spirometer Regular diet Drain management Ambulate He will need to stay in the hospital for 5 total days of IV antibiotics due to the severity of his disease. CT abdomen pelvis Sunday to assess if the drain can be removed and if he needs further IV antibiotics Restart Eliquis tomorrow and hold Eliquis after Sunday for possible IR procedure on Sunday following CT Dr. Shaver will be taking over care until Sunday Attestations 2 Medical Necessity Statement*: Patient will need to stay a total of 5 days for IV antibiotics due to the severity of his acute necrotizing and perforated appendicitis with feculent peritonitis Coding Level of Care Code Acute Code for [facility] Fwd Diagnoses Acute perforated appendicitis K35.32 Chronic anticoagulation Z79.01
[2024-02-21] MEDS: sodium chloride 0.9% 1,000 ML 100 ML IV ×2 (06:22→15:08)
[2024-02-21 07:21] LABS: Basophils % 0.2 %; Hematocrit 35.5 % (37-53); Lymphocytes # 0.7 10^3/uL (0.8-4.8); Mean Corpuscular HGB Conc 32.1 g/dL (30-55); Mean Corpuscular Volume 99.7 fl (82-101); Mean Platelet Volume 10.6 fL (7.4-10.4); Monocytes # 0.9 10^3/uL (0.2-0.9); Neutrophils # 15.42 10^3/uL (1.8-7.7); Neutrophils % 90.1 %; Nucleated Red Blood Cells % 0 %; Platelet Count 158 10^3/cmm (157-399); Red Blood Count 3.56 10^6/uL (3.85-5.65); Red Cell Distribution Width 12.4 % (12.1-15.1); White Blood Count 17.11 10^3/uL (3.29-11.43)
[2024-02-21 07:46] LABS: Anion Gap 13.2 (5-19); Blood Urea Nitrogen 14 mg/dL (8-23); Calcium 8.4 mg/dL (8.5-10.5); Carbon Dioxide 21 mmol/L (22-29); Chloride 110 mmol/L (98-107); Glomerular Filtration Rate 85.2 mL/min (90-130); Glucose 128 mg/dL (65-115); Magnesium 1.9 mg/dL (1.7-2.3); Osmolality Calculated 292 mOsm/kg (285-295); Potassium 4.2 mmol/L (3.5-5.1); Sodium 140 mmol/L (136-145)
[2024-02-21] MEDS: atorvastatin 40 mg Tablet PO (08:24)
[2024-02-21] MEDS: amlodipine 5 mg Tablet PO (08:24)
[2024-02-21] MEDS: pantoprazole DR 40 mg Tablet PO (08:24)
[2024-02-21] MEDS: amiodarone 200 mg Tablet PO (08:24)
[2024-02-21] MEDS: losartan 50 mg Tablet PO (17:21)
[2024-02-22] VITALS (13 sets, daily range): BP systolic 96–127; BP diastolic 64–74; PULSE 65–95; RESP 15–18; TEMP 36.4–37.6; O2SAT 90–93
[2024-02-22] MEDS: sodium chloride 0.9% 1,000 ML 100 ML IV ×2 (00:30→11:11)
[2024-02-22] MEDS: piperacillin-tazobactam 3.375 GM in sodium chloride 0.9% (plus) 50 ML IV ×3 (00:30→17:35)
[2024-02-22] MEDS: HYDROcodone-acetaminophen 7.5-325 mg Tablet 1 TAB PO ×4 (00:31→20:55)
[2024-02-22] MEDS: heparin 5,000 unit/mL INJ 1 mL 5000 UNIT SUBCUT ×3 (00:31→17:36)
[2024-02-22] MEDS: losartan 50 mg Tablet 100 MG PO (05:29)
[2024-02-22 06:38] LABS: Basophils % 0.1 %; Hematocrit 36.4 % (37-53); Lymphocytes # 0.7 10^3/uL (0.8-4.8); Lymphocytes % 5.4 %; Mean Corpuscular HGB Conc 30.8 g/dL (30-55); Mean Corpuscular Hemoglobin 31.6 pg (27-33); Mean Corpuscular Volume 102.8 fl (82-101); Mean Platelet Volume 11.2 fL (7.4-10.4); Monocytes # 0.7 10^3/uL (0.2-0.9); Monocytes % 5.2 %; Neutrophils % 88.2 %; Nucleated Red Blood Cells % 0 %; Platelet Count 161 10^3/cmm (157-399); Red Blood Count 3.54 10^6/uL (3.85-5.65); Red Cell Distribution Width 12.3 % (12.1-15.1); White Blood Count 13.38 10^3/uL (3.29-11.43)
[2024-02-22 06:56] LABS: Anion Gap 12.2 (5-19); Blood Urea Nitrogen 14 mg/dL (8-23); Calcium 8.3 mg/dL (8.5-10.5); Carbon Dioxide 20 mmol/L (22-29); Chloride 109 mmol/L (98-107); Glomerular Filtration Rate 85.2 mL/min (90-130); Glucose 90 mg/dL (65-115); Magnesium 2.1 mg/dL (1.7-2.3); Osmolality Calculated 284 mOsm/kg (285-295); Potassium 4.2 mmol/L (3.5-5.1); Sodium 137 mmol/L (136-145)
[2024-02-22] MEDS: amlodipine 5 mg Tablet PO (08:09)
[2024-02-22] MEDS: pantoprazole DR 40 mg Tablet PO (08:09)
[2024-02-22] MEDS: amiodarone 200 mg Tablet PO (08:09)
[2024-02-22] MEDS: atorvastatin 40 mg Tablet PO (08:09)
--- NOTE | 2024-02-22 11:22 | PM.PN ---
Subjective Subjective: Patient is postoperative day 2 status post laparoscopic appendectomy for perforated acute appendicitis with peritonitis. Patient is doing well, has been ambulating, is passing gas but has not had a bowel movement, is tolerating diet, minimal abdominal pain. Vitals/I&O/Wt Last Vital Signs Temp 97.8 F 02/22/24 07:53 Pulse 65 02/22/24 07:53 Resp 16 02/22/24 07:53 BP 121/74 02/22/24 07:53 Pulse Ox 91 02/22/24 07:53 O2 Del Method Room Air 02/22/24 07:53 O2 Flow Rate 2 02/21/24 20:00 02/21/24 02/22/24 02/22/24 22:59 06:59 14:59 Intake Total 1106.667 / 0873.224 6907.667 / 2383.334 1000 / 1000 Output Total 20 / 350 1220 / 1570 Balance 1086.667 / 926.667 -113.333 / 463.646 5844 / 1000 Weight last 48 hrs Weight 161 lb 6.4 oz Weight 161 lb 6.4 oz Physical Exam GI: OTHER: Abdomen is soft, minimally distended, appropriately tender especially in the right lower quadrant. MAURA drain has seropurulent output. Output has increased in the last 24 hours. Data 02/22/24 05:31 02/22/24 05:31 A&P Assessment and plan (1) Acute appendicitis: Qualifiers: Acute appendicitis type: with localized peritonitis Appendicitis abscess presence: without abscess Appendicitis gangrene presence: without gangrene Appendicitis perforation presence: unspecified whether perforation present Qualified Code(s): K35.30 - Acute appendicitis with localized peritonitis, without perforation or gangrene Plan Patient showing adequate progression after laparoscopic appendectomy for perforated acute appendicitis with feculent peritonitis. Patient will require at least 3 more days of IV antibiotics, on Sunday the plan is to obtain a repeat CT scan of the abdomen to evaluate for the possibility of any intra-abdominal fluid collections due to the severity of the appendicitis. If the CT scan is negative at that point the MAURA drain could be removed and the patient will be able to be discharged home. He shows understanding of the plan. I have encouraged him to take it is low with the fluid and he agrees with this. Will continue to ambulate to improve recovery. Attestations Medical Necessity Statement*: Patient will require at least 72 hours more of hospital stay for IV antibiotics. Coding Level of Care Code Acute Code for [facility] Fwd Diagnoses Acute appendicitis K35.30 Acute appendicitis type: with localized peritonitis Appendicitis abscess presence: without abscess Appendicitis gangrene presence: without gangrene Appendicitis perforation presence: unspecified whether perforation present
--- NOTE | 2024-02-22 16:36 | PC.NURSE ---
Pt now in afib. Has a history of this. Rate 95bpm. Dr. Shaver contacted and advised.
[2024-02-22] MEDS: metoprolol tartrate 25 mg Tablet PO (17:35)
[2024-02-22] MEDS: losartan 50 mg Tablet PO (17:35)
[2024-02-23] VITALS (9 sets, daily range): BP systolic 121–130; BP diastolic 67–77; PULSE 73–86; RESP 18–20; TEMP 36.3–37.1; O2SAT 92–95
[2024-02-23] MEDS: heparin 5,000 unit/mL INJ 1 mL 5000 UNIT SUBCUT ×3 (00:43→17:11)
[2024-02-23] MEDS: sodium chloride 0.9% 1,000 ML 100 ML IV ×3 (00:43→21:23)
[2024-02-23] MEDS: HYDROcodone-acetaminophen 7.5-325 mg Tablet 1 TAB PO ×3 (00:44→21:24)
[2024-02-23] MEDS: piperacillin-tazobactam 3.375 GM in sodium chloride 0.9% (plus) 50 ML IV ×3 (00:44→17:10)
[2024-02-23 05:37] LABS: Basophils % 0.2 %; Eosinophils % 0.1 %; Hematocrit 35.2 % (37-53); Mean Corpuscular HGB Conc 33.2 g/dL (30-55); Mean Corpuscular Hemoglobin 31.8 pg (27-33); Mean Corpuscular Volume 95.7 fl (82-101); Mean Platelet Volume 10.7 fL (7.4-10.4); Monocytes # 0.9 10^3/uL (0.2-0.9); Monocytes % 6.9 %; Neutrophils # 10.66 10^3/uL (1.8-7.7); Neutrophils % 83.9 %; Nucleated Red Blood Cells % 0 %; Platelet Count 215 10^3/cmm (157-399); Red Blood Count 3.68 10^6/uL (3.85-5.65); Red Cell Distribution Width 12.4 % (12.1-15.1); White Blood Count 12.68 10^3/uL (3.29-11.43)
[2024-02-23] MEDS: losartan 50 mg Tablet 100 MG PO (05:42)
[2024-02-23 05:58] LABS: Anion Gap 11.6 (5-19); Blood Urea Nitrogen 12 mg/dL (8-23); Calcium 8.4 mg/dL (8.5-10.5); Carbon Dioxide 25 mmol/L (22-29); Chloride 105 mmol/L (98-107); Creatinine Clr Calc Pharmacy 75.2465; Glomerular Filtration Rate 75.5 mL/min (90-130); Glucose 88 mg/dL (65-115); Magnesium 1.9 mg/dL (1.7-2.3); Osmolality Calculated 285 mOsm/kg (285-295); Potassium 3.6 mmol/L (3.5-5.1); Sodium 138 mmol/L (136-145)
[2024-02-23] MEDS: amiodarone 200 mg Tablet PO (08:28)
[2024-02-23] MEDS: pantoprazole DR 40 mg Tablet PO (08:29)
[2024-02-23] MEDS: atorvastatin 40 mg Tablet PO (08:29)
[2024-02-23] MEDS: amlodipine 5 mg Tablet PO (08:29)
[2024-02-23] MEDS: metoprolol succinate ER (24 HR) 50 mg Tablet PO (08:29)
--- NOTE | 2024-02-23 14:34 | P.PN_ITS ---
Subjective 2 Subjective: This postoperative day 3 status post laparoscopic appendectomy for perforated acute appendicitis with feculent peritonitis. Patient is doing well after surgery. No significant abdominal pain. He is passing gas and had a very small bowel movement. Has been walking around. Vitals/I&O/Wt Last Vital Signs Temp 97.6 F 02/23/24 11:31 Pulse 77 02/23/24 11:31 Resp 20 H 02/23/24 11:31 BP 128/70 02/23/24 11:31 Pulse Ox 92 02/23/24 11:31 O2 Del Method Nasal Cannula 02/23/24 11:31 O2 Flow Rate 3 02/23/24 04:00 02/22/24 02/23/24 02/23/24 22:59 06:59 14:59 Intake Total 1400 / 2690 100 / 2790 1391.667 / 1391.667 Output Total 765 / 765 Balance 635 / 1925 100 / 2025 1391.667 / 1391.667 Weight last 48 hrs Weight 161 lb 9.6 oz Weight 161 lb 6.4 oz Physical Exam 2 GI: OTHER: Abdomen is soft, appropriately tender, minimal distention. MAURA drain is in place and has had 15 cc of seropurulent output in the last 24 hours. Data 02/23/24 04:59 02/23/24 04:59 A&P Assessment and plan (1) Acute appendicitis: Qualifiers: Acute appendicitis type: with localized peritonitis Appendicitis abscess presence: without abscess Appendicitis gangrene presence: without gangrene Appendicitis perforation presence: unspecified whether perforation present Qualified Code(s): K35.30 - Acute appendicitis with localized peritonitis, without perforation or gangrene Plan Patient is showing adequate progression on postoperative day 3 after laparoscopic appendectomy for perforated acute appendicitis. Yesterday he was noted to be on A-fib, it was noted that he has not been getting his meds metoprolol since admission and therefore we restarted this. Otherwise progression is stable white count has slowly trended down and is 12.6 today. The plan is for patient to remain in the hospital until Sunday and at that time we will obtain a repeat CT scan of the abdomen pelvis to ensure that there are no intra-abdominal fluid collections that need to be drained or addressed previous to discharge. Patient shows understanding agrees with this. Patient is on chronic anticoagulation, I have decided to hold his anticoagulation in anticipation for the possibility of needing surgical intervention or drainage Sunday. Patient will continue on DVT prophylaxis. Attestations 2 Medical Necessity Statement*: Patient will require 48 hours of hospital stay for management of perforated acute appendicitis. Coding Level of Care Code Acute Code for [facility] Diagnoses Acute appendicitis K35.30 Acute appendicitis type: with localized peritonitis Appendicitis abscess presence: without abscess Appendicitis gangrene presence: without gangrene Appendicitis perforation presence: unspecified whether perforation present
[2024-02-23] MEDS: losartan 50 mg Tablet PO (17:11)
[2024-02-24] VITALS (9 sets, daily range): BP systolic 116–129; BP diastolic 61–72; PULSE 66–77; RESP 16–20; TEMP 36.5–36.8; O2SAT 90–95
[2024-02-24] MEDS: heparin 5,000 unit/mL INJ 1 mL 5000 UNIT SUBCUT ×3 (01:33→16:31)
[2024-02-24] MEDS: piperacillin-tazobactam 3.375 GM in sodium chloride 0.9% (plus) 50 ML IV ×2 (01:34→08:26)
[2024-02-24 03:35] LABS: Basophils % 0.2 %; Eosinophils % 0.3 %; Hematocrit 33.9 % (37-53); Lymphocytes # 1.1 10^3/uL (0.8-4.8); Mean Corpuscular Hemoglobin 31.8 pg (27-33); Mean Corpuscular Volume 96.3 fl (82-101); Mean Platelet Volume 10.2 fL (7.4-10.4); Monocytes # 1.1 10^3/uL (0.2-0.9); Neutrophils # 9.74 10^3/uL (1.8-7.7); Neutrophils % 80.4 %; Nucleated Red Blood Cells % 0 %; Platelet Count 209 10^3/cmm (157-399); Red Blood Count 3.52 10^6/uL (3.85-5.65); Red Cell Distribution Width 12.4 % (12.1-15.1); White Blood Count 12.11 10^3/uL (3.29-11.43)
[2024-02-24 03:54] LABS: Anion Gap 12.3 (5-19); Blood Urea Nitrogen 10 mg/dL (8-23); Calcium 8.2 mg/dL (8.5-10.5); Carbon Dioxide 24 mmol/L (22-29); Chloride 104 mmol/L (98-107); Creatinine Clr Calc Pharmacy 83.6073; Glomerular Filtration Rate 85.2 mL/min (90-130); Glucose 104 mg/dL (65-115); Magnesium 1.9 mg/dL (1.7-2.3); Osmolality Calculated 283 mOsm/kg (285-295); Potassium 3.3 mmol/L (3.5-5.1); Sodium 137 mmol/L (136-145)
[2024-02-24] MEDS: sodium chloride 0.9% 1,000 ML 100 ML IV ×2 (06:20→16:31)
[2024-02-24] MEDS: losartan 50 mg Tablet 100 MG PO (06:20)
[2024-02-24] MEDS: amiodarone 200 mg Tablet PO (08:26)
[2024-02-24] MEDS: atorvastatin 40 mg Tablet PO (08:26)
[2024-02-24] MEDS: amlodipine 5 mg Tablet PO (08:26)
[2024-02-24] MEDS: metoprolol succinate ER (24 HR) 50 mg Tablet PO (08:26)
[2024-02-24] MEDS: pantoprazole DR 40 mg Tablet PO (08:26)
--- NOTE | 2024-02-24 11:13 | PM.PN ---
Subjective Subjective: Patient is postoperative day 4 status post laparoscopic appendectomy for perforated appendicitis with feculent peritonitis. Patient is doing okay tolerating diet, has not had a bowel movements passing significant amount no gas. No significant abdominal pain, has been ambulating. Vitals/I&O/Wt Last Vital Signs Temp 97.9 F 02/24/24 07:40 Pulse 70 02/24/24 07:40 Resp 18 02/24/24 07:40 BP 128/69 02/24/24 07:40 Pulse Ox 95 02/24/24 07:40 O2 Del Method Nasal Cannula 02/24/24 07:40 O2 Flow Rate 3 02/23/24 20:00 02/23/24 02/24/24 02/24/24 22:59 06:59 14:59 Intake Total 1170 / 2561.667 1185 / 3746.667 480 / 480 Output Total Balance 1165 / 2556.667 1180 / 3736.667 480 / 480 Weight last 48 hrs Weight 165 lb 3.2 oz Weight 161 lb 9.6 oz Physical Exam GI: OTHER: Abdomen soft, nontender, minimally distended, MAURA drain with minimal amount of seropurulent drainage Data 02/24/24 03:05 02/24/24 03:05 A&P Assessment and plan (1) Acute appendicitis: Qualifiers: Acute appendicitis type: with localized peritonitis Appendicitis abscess presence: without abscess Appendicitis gangrene presence: without gangrene Appendicitis perforation presence: unspecified whether perforation present Qualified Code(s): K35.30 - Acute appendicitis with localized peritonitis, without perforation or gangrene Plan Patient is showing very good progression after laparoscopic appendectomy for perforated appendicitis with feculent peritonitis. Plan is to obtain a CT scan of the abdomen pelvis tomorrow to evaluate for presence of an intra-abdominal fluid collections and if there is known patient will be able to be discharged home on antibiotics. He has not had a bowel movement yet but has been consistently passing gas and feels the need to have 1 I will offer some MiraLAX today to help. White count has been slowly trending down. No other significant issues. Attestations Medical Necessity Statement*: Patient will require 24 hours more of hospital stay, we will obtain a CAT scan tomorrow before discharge Coding Level of Care Code Acute Code for [facility] Fwd Diagnoses Acute appendicitis K35.30 Acute appendicitis type: with localized peritonitis Appendicitis abscess presence: without abscess Appendicitis gangrene presence: without gangrene Appendicitis perforation presence: unspecified whether perforation present
[2024-02-24] MEDS: acetaminophen 325 mg Tablet 650 MG PO (15:01)
[2024-02-24] MEDS: losartan 50 mg Tablet PO (16:31)
[2024-02-24] MEDS: piperacillin-tazobactam 3.375 GM in sodium chloride 0.9% (plus) 100 ML IV (16:32)
[2024-02-24] MEDS: sennosides 8.6 mg Tablet 17.1999999999999993 MG PO (19:51)
[2024-02-25] VITALS (7 sets, daily range): BP systolic 122–151; BP diastolic 63–74; PULSE 64–72; RESP 17–20; TEMP 36.4–37.2; O2SAT 90–92
[2024-02-25] MEDS: heparin 5,000 unit/mL INJ 1 mL 5000 UNIT SUBCUT ×3 (02:45→17:26)
[2024-02-25] MEDS: piperacillin-tazobactam 3.375 GM in sodium chloride 0.9% (plus) 100 ML IV ×3 (02:45→22:14)
[2024-02-25] MEDS: sodium chloride 0.9% 1,000 ML 100 ML IV ×2 (02:49→21:24)
--- NOTE | 2024-02-25 05:54 | CT_ITS ---
WS: [id number] CT ABDOMEN PELVIS TECHNIQUE: Contrast-enhanced CT of the abdomen and pelvis with coronal and sagittal reformatted image s. CLINICAL INFORMATION: s/p lap appy for intra-abdominal colections. COMPARISON: CT 02/19/2024 DLP: 558.[address] scans at [facility] use at least one of these dose optimization techniques: automated e xposure control; mA and/or kV adjustment per patient size (includes targeted exams where dose is matc hed to clinical indication); or iterative reconstruction. FINDINGS: Status post recent appendectomy with surgical clips. Small fluid collection in the appendectomy bed m easuring 2.7 x 2.1 x 2.2 cm with a small amount of postoperative air. Surgical drain traverses the ce nter of this fluid collection. Postoperative changes in the RIGHT lower quadrant. Tiny amount of free fluid in the pelvis traversed by the surgical drain. Small bilateral pleural effusions RIGHT greater than LEFT with bibasal atelectasis new from previous. Mild diffuse fatty infiltration of the liver. A few splenic granulomas. Tiny esophageal hiatal herni a. Normal pancreas. Normal caliber abdominal aorta. Aortic calcification. No aneurysm. Celiac and SMA are patent. Adrenal glands are normal. No hydronephrosis in either kidney. Calcified enlarged prostate measuring 3.5 x 4.3 cm. Recommend correlation PSA. Normal sigmoid colon. Tiny fat-containing LEFT inguinal hernia. No other acute findings. CT/CT abdomen pelvis w con* [id number] IMPRESSION: 1. Status post recent appendectomy. Small fluid collection in the appendectomy bed measuring 2.7 x 2.1 x 2.2 cm with a small amount of postoperative air. Jagjit gical drain traverses the collection. Recommend correlation with drain output. This is probably too small for a percutaneous drain placement. 2. Small RIGHT greater than LEFT pleural effusion with bibasilar atelectasis. 3. Enlarged prostate. Recommend correlation PSA. 4. No other acute findings.
[2024-02-25] MEDS: losartan 50 mg Tablet 100 MG PO (06:08)
[2024-02-25] MEDS: iohexol 350 mg/mL 500 mL Btl (per mL) IV (07:42)
[2024-02-25 08:28] LABS: Basophils % 0.3 %; Eosinophils % 0.3 %; Hematocrit 31.6 % (37-53); Lymphocytes # 1.2 10^3/uL (0.8-4.8); Mean Corpuscular HGB Conc 34.2 g/dL (30-55); Mean Corpuscular Hemoglobin 31.8 pg (27-33); Mean Corpuscular Volume 92.9 fl (82-101); Mean Platelet Volume 10.6 fL (7.4-10.4); Monocytes # 1.4 10^3/uL (0.2-0.9); Monocytes % 9.9 %; Neutrophils # 10.69 10^3/uL (1.8-7.7); Neutrophils % 78.7 %; Nucleated Red Blood Cells % 0 %; Platelet Count 217 10^3/cmm (157-399); Red Cell Distribution Width 12.5 % (12.1-15.1)
[2024-02-25] MEDS: metoprolol succinate ER (24 HR) 50 mg Tablet PO (09:36)
[2024-02-25] MEDS: amiodarone 200 mg Tablet PO (09:36)
[2024-02-25] MEDS: atorvastatin 40 mg Tablet PO (09:36)
[2024-02-25] MEDS: pantoprazole DR 40 mg Tablet PO (09:36)
[2024-02-25] MEDS: amlodipine 5 mg Tablet PO (09:36)
--- NOTE | 2024-02-25 15:52 | P.PN_ITS ---
Subjective 2 Subjective: Patient seen and examined. Pain controlled Vitals/I&O/Wt Last Vital Signs Temp 97.5 F L 02/25/24 11:39 Pulse 65 02/25/24 11:39 Resp 19 H 02/25/24 11:39 BP 151/68 02/25/24 11:39 Pulse Ox 92 02/25/24 11:39 O2 Del Method Room Air 02/25/24 11:39 O2 Flow Rate 3 02/23/24 20:00 02/25/24 02/25/24 02/25/24 06:59 14:59 22:59 Intake Total 1000 / 2990 1492.500 / 1492.500 Output Total Balance 1000 / 2980 1482.500 / 1482.500 Weight last 48 hrs Weight 168 lb 14.4 oz Weight 165 lb 3.2 oz Physical Exam 2 Narrative: General: No acute distress, awake alert and oriented x 3 Abdomen: Soft, nondistended, appropriately tender Drain: Purulent, 20 cc last 24 hours Data 02/25/24 08:18 02/24/24 03:05 A&P Assessment and plan (1) Acute perforated appendicitis: (2) Chronic anticoagulation: Plan Per day #5 status post laparoscopic appendectomy for acute necrotizing and perforated appendicitis with feculent peritonitis Continue Zosyn and drain management Incentive spirometer Regular diet Drain management Ambulate CT abdomen pelvis this morning shows coalescing phlegmon's with a small amount of air in 2 locations in the abdomen. Likely the drain traverses through each of them. He still has purulent drainage. White blood cell count has trended up today Attestations 2 Medical Necessity Statement*: Patient requires at least 1 more night in the hospital for IV antibiotics as white blood cell count is trending up and persistent infection seen in the abdomen on CT. Coding Level of Care Code Acute Code for [facility] Fwd Diagnoses Acute perforated appendicitis K35.32 Chronic anticoagulation Z79.01
[2024-02-25] MEDS: losartan 50 mg Tablet PO (17:26)
[2024-02-26] VITALS (9 sets, daily range): BP systolic 131–150; BP diastolic 66–76; PULSE 61–83; RESP 16–18; TEMP 36.5–37.1; O2SAT 90–96; BMI 25.1
[2024-02-26] MEDS: heparin 5,000 unit/mL INJ 1 mL 5000 UNIT SUBCUT ×4 (00:22→23:17)
[2024-02-26] MEDS: piperacillin-tazobactam 3.375 GM in sodium chloride 0.9% (plus) 100 ML IV ×2 (05:57→16:33)
[2024-02-26 05:59] LABS: Basophils % 0.2 %; Eosinophils # 0.1 10^3/uL (0.0-0.8); Eosinophils % 0.6 %; Hematocrit 33.2 % (37-53); Lymphocytes # 1.5 10^3/uL (0.8-4.8); Mean Corpuscular Hemoglobin 31.7 pg (27-33); Mean Corpuscular Volume 93.3 fl (82-101); Mean Platelet Volume 10.4 fL (7.4-10.4); Monocytes # 1.1 10^3/uL (0.2-0.9); Neutrophils # 9.04 10^3/uL (1.8-7.7); Neutrophils % 74.1 %; Nucleated Red Blood Cells % 0.2 %; Platelet Count 286 10^3/cmm (157-399); Red Blood Count 3.56 10^6/uL (3.85-5.65); Red Cell Distribution Width 12.3 % (12.1-15.1); White Blood Count 12.21 10^3/uL (3.29-11.43)
[2024-02-26] MEDS: sodium chloride 0.9% 1,000 ML 100 ML IV ×2 (06:01→16:33)
[2024-02-26] MEDS: losartan 50 mg Tablet 100 MG PO (06:02)
[2024-02-26 06:20] LABS: Anion Gap 15.2 (5-19); Blood Urea Nitrogen 9 mg/dL (8-23); Calcium 8.7 mg/dL (8.5-10.5); Carbon Dioxide 25 mmol/L (22-29); Chloride 102 mmol/L (98-107); Creatinine Clr Calc Pharmacy 94.9282; Glomerular Filtration Rate 97.6 mL/min (90-130); Glucose 75 mg/dL (65-115); Magnesium 1.9 mg/dL (1.7-2.3); Osmolality Calculated 285 mOsm/kg (285-295); Potassium 3.2 mmol/L (3.5-5.1); Sodium 139 mmol/L (136-145)
[2024-02-26] MEDS: amiodarone 200 mg Tablet PO (10:33)
[2024-02-26] MEDS: pantoprazole DR 40 mg Tablet PO (10:34)
[2024-02-26] MEDS: metoprolol succinate ER (24 HR) 50 mg Tablet PO (10:34)
[2024-02-26] MEDS: atorvastatin 40 mg Tablet PO (10:34)
[2024-02-26] MEDS: amlodipine 5 mg Tablet PO (10:34)
[2024-02-26] MEDS: losartan 50 mg Tablet PO (16:32)
[2024-02-26] MEDS: sennosides 8.6 mg Tablet 17.1999999999999993 MG PO (20:40)
--- NOTE | 2024-02-26 21:36 | PC.NURSE ---
Pipercillin/tazobactam retimed due to late finish time; pt did not have IV access. Retimed for next dose to be 4 hours after end time of current dose.
[2024-02-27] MEDS: sodium chloride 0.9% 1,000 ML 100 ML IV (01:59)
[2024-02-27] MEDS: piperacillin-tazobactam 3.375 GM in sodium chloride 0.9% (plus) 100 ML IV (01:59)
[2024-02-27 04:00] VITALS: BP 143/71; PULSE 80; RESP 17; TEMP 36.6; O2SAT 90
[2024-02-27 05:29] VITALS: BP 143/71
[2024-02-27] MEDS: losartan 50 mg Tablet 100 MG PO (05:29)
[2024-02-27 05:45] LABS: Basophils % 0.3 %; Eosinophils # 0.1 10^3/uL (0.0-0.8); Eosinophils % 0.5 %; Hematocrit 32.8 % (37-53); Lymphocytes # 1.3 10^3/uL (0.8-4.8); Lymphocytes % 11.4 %; Mean Corpuscular HGB Conc 33.8 g/dL (30-55); Mean Corpuscular Volume 91.6 fl (82-101); Mean Platelet Volume 10.7 fL (7.4-10.4); Monocytes # 0.9 10^3/uL (0.2-0.9); Monocytes % 8.2 %; Neutrophils # 8.65 10^3/uL (1.8-7.7); Neutrophils % 76.6 %; Nucleated Red Blood Cells % 0 %; Platelet Count 290 10^3/cmm (157-399); Red Blood Count 3.58 10^6/uL (3.85-5.65); Red Cell Distribution Width 12.4 % (12.1-15.1)
--- NOTE | 2024-02-27 06:06 | PM.DCS ---
Discharge Providers Date of Admission: 02/19/24 22:02 Date of Discharge: February 27, 2024 Attending Provider at Admission: Hunter Martell DO Attending Provider at Discharge: Hunter Martell DO Primary Care Provider: Sanjana Ghosh APN Diagnoses at Discharge Discharge Diagnosis (1) Acute perforated appendicitis: Status: Acute (2) Chronic anticoagulation: Status: Acute Reason for Visit Reason for Visit: Rt Lower Quad Pain Hospital Course Hospital Course This is a very pleasant 53-year-old gentleman presenting for hospital pain he was diagnosed with acute appendicitis and underwent laparoscopic appendectomy. Intraoperatively he was found to have acute gangrenous and perforated appendicitis with feculent peritonitis. A drain was placed. He states 7 days for IV antibiotics. Repeat CT of the abdomen pelvis prior to discharge showed possible abscess formation in 2 areas around the drain, with the drain coursing through them. Drain was putting out purulent material upon discharge. His white blood cell count had normalized, as did his vitals. He was discharged with antibiotics and the drain present. He will follow-up in my office next week to assess for possible drain removal. Physical Exam Narrative: General : Patient is well developed , no acute distress, oriented x3 Head : Normal cephalic, a-traumatic. Ears : Pinnae and external canal are normal. Hearing is normal. Eyes : PERRLA, Sclera and injection are normal. No conjunctival discharge. Nose : Mucous membranes are without erythema. Throat : buccal mucosa is normal, gums are without significant recession or hypertrophy. Lungs : Equal chest rise bilaterally, no use of accessory muscles, trachea is midline. Cor : Rate and rhythm are normal. Abdomen : Soft, ND, appropriately tender no g/r/m Drain purulent Extremities : No edema, no cyanosis or clubbing, dorsalis pedis pulses are present bilaterally, non-tender to palpation of calves. Upper extremities are normal bilaterally. Back : non-tender to palpation, no CVA tenderness. Neuro : CN II - XII intact, Upper and lower extremities have equal and full strength Discharge Data Studies Completed and Pending Completed Studies During Hospitalization Category Date Time Status CT abdomen pelvis w con* [id number] Routine Cat Scan 02/25/24 05:[address] abdomen pelvis w con* [id number] Stat Cat Scan 02/19/24 20:08 Completed Pathology: Surgical [PTH] Routine Pth 02/20/24 14:26 Completed Pending at discharge Category Date Time Status ES surgery / GI images Routine Exams 02/20/24 14:15 Ordered BMP [Basic Metabolic Panel] AM LABS Lab 02/27/24 04:53 Received BMP [Basic Metabolic Panel] AM LABS Lab 02/28/24 04:00 Ordered CBC Auto Diff [Complete Blood Count w/Auto] AM LABS Lab 02/28/24 04:00 Ordered Magnesium AM LABS Lab 02/27/24 04:53 Received Magnesium AM LABS Lab 02/28/24 04:00 Ordered Radiology Impressions Abdomen/Pelvis CT 02/25/24 05:54 IMPRESSION: 1. Status post recent appendectomy. Small fluid collection in the appendectomy bed measuring 2.7 x 2.1 x 2.2 cm with a small amount of postoperative air. Surgical drain traverses the collection. Recommend correlation with drain output. This is probably too small for a percutaneous drain placement. 2. Small RIGHT greater than LEFT pleural effusion with bibasilar atelectasis. 3. Enlarged prostate. Recommend correlation PSA. 4. No other acute findings. Laboratory Results WBC 11.30 10^3/uL (3.29-11.43) 02/27/24 04:53 RBC 3.58 10^6/uL (3.85-5.65) L 02/27/24 04:53 Hgb 11.10 g/dL (11.27-16.99) L 02/27/24 04:53 Hct 32.8 % (37-53) L 02/27/24 04:53 MCV 91.6 fl (82-101) 02/27/24 04:53 MCH 31.0 pg (27-33) 02/27/24 04:53 MCHC 33.8 g/dL (30-55) 02/27/24 04:53 RDW 12.4 % (12.1-15.1) 02/27/24 04:53 Plt Count 290 10^3/cmm (157-399) 02/27/24 04:53 MPV 10.7 fL (7.4-10.4) H 02/27/24 04:53 Neut % (Auto) 76.6 % 02/27/24 04:53 Lymph % (Auto) 11.4 % 02/27/24 04:53 Cassia % (Auto) 8.2 % 02/27/24 04:53 Eos % (Auto) 0.5 % 02/27/24 04:53 Baso % (Auto) 0.3 % 02/27/24 04:53 Neut # (Auto) 8.65 10^3/uL (1.8-7.7) H 02/27/24 04:53 Lymph # (Auto) 1.3 10^3/uL (0.8-4.8) 02/27/24 04:53 Cassia # (Auto) 0.9 10^3/uL (0.2-0.9) 02/27/24 04:53 Eos # (Auto) 0.1 10^3/uL (0.0-0.8) 02/27/24 04:53 Baso # (Auto) 0.0 10^3/uL (0.0-0.1) 02/27/24 04:53 Nucleated RBC % (auto) 0 % 02/27/24 04:53 Nucleated RBCs # 0.0 /100WBC 02/27/24 04:53 Sodium 139 mmol/L (136-145) 02/26/24 05:27 Potassium 3.2 mmol/L (3.5-5.1) L 02/26/24 05:27 Chloride 102 mmol/L (98-107) 02/26/24 05:27 Carbon Dioxide 25 mmol/L (22-29) 02/26/24 05:27 Anion Gap 15.2 (5-19) 02/26/24 05:27 BUN 9 mg/dL (8-23) 02/26/24 05:27 Creatinine 0.8 mg/dL (0.7-1.2) 02/26/24 05:27 GFR Calculation 97.6 mL/min (90-130) 02/26/24 05:27 Glucose 75 mg/dL (65-115) 02/26/24 05:27 Calculated Osmolality 285 mOsm/kg (285-295) 02/26/24 05:27 Calcium 8.7 mg/dL (8.5-10.5) 02/26/24 05:27 Magnesium 1.9 mg/dL (1.7-2.3) 02/26/24 05:27 Total Bilirubin 0.6 mg/dL (0.15-1.2) 02/19/24 19:50 AST 23 U/L (0-40) 02/19/24 19:50 ALT 38 U/L (0-41) 02/19/24 19:50 Alkaline Phosphatase 82 U/L (40-130) 02/19/24 19:50 C-Reactive Protein 59.6 mg/L (0.0-4.9) H 02/19/24 19:50 Total Protein 7.4 g/dL (6.6-8.7) 02/19/24 19:50 Albumin 4.6 g/dL (3.5-5.2) 02/19/24 19:50 Globulin 2.8 g/dL (1.3-4.6) 02/19/24 19:50 Lipase 24 U/L (13-60) 02/19/24 19:50 Urine Color Yellow (Yellow) 02/19/24 19:53 Urine Appearance Clear (CLEAR) 02/19/24 19:53 Urine pH 8 (5-7) H 02/19/24 19:53 Ur Specific Zortman 1.010 (1.005-1.030) 02/19/24 19:53 Urine Protein Neg (Negative) 02/19/24 19:53 Urine Glucose (UA) Norm (Normal) 02/19/24 19:53 Urine Ketones 1+ (Negative) H 02/19/24 19:53 Urine Blood Neg (Negative) 02/19/24 19:53 Urine Nitrate Negative (Negative) 02/19/24 19:53 Urine Bilirubin Neg (Negative) 02/19/24 19:53 Prot Sulfosalicylic Acd Negative (Negative) 02/19/24 19:53 Urine Urobilinogen Norm mg/dL (Negative) 02/19/24 19:53 Ur Leukocyte Esterase Negative (Negative) 02/19/24 19:53 Urine RBC 0-4 /hpf (0-2) H 02/19/24 19:53 Urine WBC None /hpf (0-5) 02/19/24 19:53 Ur Squamous Epith Cells None /hpf (0-5) 02/19/24 19:53 Amorphous Sediment Not Reportable 02/19/24 19:53 Urine Bacteria None /hpf (NONE) 02/19/24 19:53 Urine Mucus 2+ /hpf 02/19/24 19:53 Procedures Performed Laparoscopic appendectomy Vitals Last Vital Signs Temp 97.8 F 02/27/24 04:00 Pulse 80 02/27/24 04:00 Resp 17 02/27/24 04:00 BP 143/71 02/27/24 05:29 Pulse Ox 90 02/27/24 04:00 O2 Del Method Room Air 02/27/24 04:00 O2 Flow Rate 3 02/23/24 20:00 Discharge Plan Discharge Patient Disposition: Home Condition: Stable Prescriptions: New hydrocodone-acetaminophen 7.5-325 mg tablet 1 tab PO Q6H PRN (Reason: pain) Qty: 20 0RF amoxicillin-pot clavulanate 875-125 mg tablet 1 tab PO BID Qty: 28 0RF docusate sodium [Colace] 100 mg capsule 100 mg PO BID Qty: 14 0RF Continued nitroglycerin [Nitrostat] 0.4 mg tablet, sublingual 0.4 mg SUBLINGUAL Q5M PRN (Reason: chest pain) Qty: 25 3RF magnesium 250 mg tablet 250 mg PO DAILY Eliquis 5 mg tablet 5 mg PO BID Qty: 180 3RF metoprolol succinate 50 mg tablet extended release 24 hr 50 mg PO QDAY Qty: 90 3RF clopidogrel 75 mg tablet 75 mg PO DAILY Qty: 90 3RF amlodipine 5 mg tablet 5 mg PO DAILY Qty: 90 3RF omeprazole 40 mg capsule,delayed release(DR/EC) 40 mg PO DAILY ondansetron 4 mg tablet,disintegrating 4 mg PO Q6H PRN (Reason: Nausea) losartan 50 mg tablet See Rx Instructions .ROUTE .COMPLEX Rx Instructions: Take 100mg in the morning and 50mg in evening. amiodarone 200 mg tablet 200 mg PO DAILY rosuvastatin 20 mg tablet 10 mg PO DAILY fenofibrate 160 mg tablet 160 mg PO DAILY Referrals: Sanjana Ghosh APN [Primary Care Provider] - 03/04/24 1:20 pm Hunter Martell DO [Physician] - 03/07/24 8:55 am (Also want to see patient on 03/03/24 to assess for drain removal) Discharge Diet: Advance as tolerated Discharge Activity: Resume usual activity Patient Instructions: Opioid Safety, Post Anesthesia Care Activity Restrictions/Additional Instructions: Empty drain every day and record output. Empty more often if filling Discharge Attestations Time Spent in Discharge Care*: less than 30 min Quality Metrics Clinical Quality Measures [ No reported AMI, CVA or VTE this stay] Coding Level of Care Code Acute Code for [facility] Fwd Diagnoses Acute perforated appendicitis K35.32 Chronic anticoagulation Z79.01
[2024-02-27 06:10] LABS: Anion Gap 15.9 (5-19); Blood Urea Nitrogen 10 mg/dL (8-23); Calcium 8.3 mg/dL (8.5-10.5); Carbon Dioxide 23 mmol/L (22-29); Chloride 101 mmol/L (98-107); Creatinine Clr Calc Pharmacy 107.9662; Glomerular Filtration Rate 113.9 mL/min (90-130); Glucose 73 mg/dL (65-115); Magnesium 1.8 mg/dL (1.7-2.3); Osmolality Calculated 282 mOsm/kg (285-295); Sodium 137 mmol/L (136-145)
[2024-02-27 06:13] LABS: Potassium 2.9 mmol/L (3.5-5.1)
[2024-02-27 08:00] VITALS: BP 151/76; PULSE 61; RESP 16; TEMP 36.6; O2SAT 91
[2024-02-27] MEDS: pantoprazole DR 40 mg Tablet PO (09:27)
[2024-02-27] MEDS: potassium chloride ER 20 mEq Tablet 40 MEQ PO ×2 (09:27→10:55)
[2024-02-27] MEDS: amiodarone 200 mg Tablet PO (09:27)
[2024-02-27] MEDS: atorvastatin 40 mg Tablet PO (09:27)
[2024-02-27] MEDS: metoprolol succinate ER (24 HR) 50 mg Tablet PO (09:27)
[2024-02-27] MEDS: amlodipine 5 mg Tablet PO (09:27)
[2024-02-27] MEDS: heparin 5,000 unit/mL INJ 1 mL 5000 UNIT SUBCUT (09:27)
[2024-02-27 11:31] VITALS: BP 151/76; PULSE 61; RESP 16; TEMP 36.6; O2SAT 91
== END 2024-02-27 11:31 | disposition home or self-care (01) | DRG 399 ==
LOC: ER 21:38 → MEDSURG 22:02
PROVIDERS: Emergency Medicine; Surgery; Admitting Provider Surgery; Emergency Provider Emergency Medicine; PCP Nurse Practitioner Family; Visit Provider Surgery
PROC: 0DTJ4ZZ Resection of Appendix, Percutaneous Endoscopic Approach (ICD-10-PCS; CPT 44970; principal; 2024-02-20 13:00)
DX: K35.32 Acute appendicitis with perforation, localized peritonitis, and gangrene, without abscess (principal); Z79.02 Long term (current) use of antithrombotics/antiplatelets; I25.10 Atherosclerotic heart disease of native coronary artery without angina pectoris; E78.5 Hyperlipidemia, unspecified; I10 Essential (primary) hypertension; F17.200 Nicotine dependence, unspecified, uncomplicated; I48.91 Unspecified atrial fibrillation; Z79.01 Long term (current) use of anticoagulants; E86.0 Dehydration
CPT/HCPCS: 36415; 74177; 80048; 80053; 81001; 83690; 83735; 85025; 86140; 88304; 93005; 96365; 96372; 96375; 99285; J0131; J1100; J1170; J1644; J2270; J2371; J2405; J2543; J2704; J3010; J3490; J7030; Q9967

== ENCOUNTER 2024-03-07 07:42 | Outpatient (CLI) | payer OTHER, SELFPAY ==
--- NOTE | 2024-03-07 08:00 | CT_ITS ---
WS: [id number] CT ABDOMEN PELVIS TECHNIQUE: Contrast-enhanced CT of the abdomen and pelvis with coronal and sagittal reformatted image s. CLINICAL INFORMATION: abdominal abscess COMPARISON: 02/25/2024 DLP: 455.[address] scans at [facility] use at least one of these dose optimization techniques: automated e xposure control; mA and/or kV adjustment per patient size (includes targeted exams where dose is matc hed to clinical indication); or iterative reconstruction. FINDINGS: Status post recent appendectomy with surgical clips in the RIGHT lower quadrant. Small fluid collecti on in the appendectomy bed appears more liquefied today measuring 1.7 x 2.2 x 2.7 cm AP by transverse by craniocaudal. This has a more well-defined wall today with small amount of associated air. Signif icant improvement in the surrounding inflammation and induration in the mesentery and cecum. Surgical drain traverses the center of the abscess cavity and appears well-positioned. Free fluid in the pelv is has resolved. Previously described pleural effusions have resolved. Diffuse fatty infiltration of the liver. Spleni c granulomas. Tiny esophageal hiatal hernia. Normal portal vein and splenic vein. Normal pancreas. Ad renal glands are normal. Normal renal parenchymal enhancement. No hydronephrosis. Enlarged calcified prostate unchanged. Normal sigmoid colon. Normal caliber abdominal aorta. Aortic c alcification. CT/CT abdomen pelvis w con* [id number] IMPRESSION: 1. Previously described pleural effusions have resolved. Lung bases are clear. 2. Abscess cavity in the RIGHT lower quadrant appears more well encapsulated t henrry with surgical drain traversing the central portion of the collection. This appears well-positioned. 3. Central contents of the abscess cavity appear more liquefied today measure 1.7 x 2.2 x 2.7 cm with decreased and nearly resolved surrounding induration an d inflammation. No evidence of contrast leakage into the abscess cavity. 4. Free fluid in the pelvis has resolved. 5. Enlarged prostate. 6. No other significant changes.
[2024-03-07] MEDS: iohexol 350 mg/mL 500 mL Btl (per mL) IV (08:07)
[2024-03-07] MEDS: iohexol 350 mg/mL 500 mL Btl (per mL) PO (08:08)
== END 2024-03-07 07:43 | disposition home or self-care (01) ==
LOC: RAD 07:42
PROVIDERS: PCP Nurse Practitioner Family; Visit Provider Surgery
DX: K65.1 Peritoneal abscess (principal); Z90.49 Acquired absence of other specified parts of digestive tract; K76.0 Fatty (change of) liver, not elsewhere classified; D73.89 Other diseases of spleen; N40.0 Benign prostatic hyperplasia without lower urinary tract symptoms
CPT/HCPCS: 74177; Q9967

== ENCOUNTER → 2024-10-29 15:01 | Outpatient (BNVA) | payer OTHER, SELFPAY | PROVIDERS: PCP Nurse Practitioner Family; Visit Provider Internal Medicine Cardiovascular Disease | DX: R06.02 Shortness of breath (principal); Z79.899 Other long term (current) drug therapy | CPT/HCPCS: 71046; 84443 ==